=== PATIENT | male | born 1945 | race African-American/Black ===

== ENCOUNTER 2017-06-09 15:18 | Emergency (ER) | payer MEDICARE ==
[~2017-06-09] VITALS: Ht 172.7 cm; Wt 120.2 kg
[2017-06-09] MEDS ORDERED: calcium citrate (15:29)
[2017-06-09] MEDS ORDERED: GABAPENTIN100 MG ORAL (15:29)
[2017-06-09] MEDS ORDERED: FLUTICASONE PRO16 G1 NASAL (15:29)
[2017-06-09] MEDS ORDERED: PAMELOR10 MG ORAL (15:29)
[2017-06-09] MEDS ORDERED: VITAMIN C500 M1 ORAL (15:29)
[2017-06-09] MEDS ORDERED: ISOSORBIDE DINIT5 MG ORAL (15:29)
[2017-06-09] MEDS ORDERED: VITAMIN D400 INTLU ORAL (15:29)
[2017-06-09] MEDS ORDERED: SIMVASTATIN20 MG ORAL (15:29)
[2017-06-09] MEDS ORDERED: TRAMADOL HCL50 MG ORAL ×2 (15:29→19:27)
[2017-06-09] MEDS ORDERED: VENTOLIN HFA18 GM INH (15:29)
[2017-06-09] MEDS ORDERED: PLAVIX75 MG ORAL (15:29)
[2017-06-09] MEDS ORDERED: traMADol 50mg tab ORAL ONE (15:45)
[2017-06-09 17:05] LABS: BASOPHILS % (AUTO) 1.1 % (0.0-2.0); EOSINOPHILS % (AUTO) 2.7 % (0.0-3.0); LYMPHOCYTES % (AUTO) 20.8 % (20.0-45.0); MEAN CORPUSCULAR HEMOGLOBIN 31.8 PG (27.0-31.0); MEAN CORPUSCULAR HGB CONC 34.4 G/DL (32.0-36.0); MEAN CORPUSCULAR VOLUME 93 FL (80-99); MEAN PLATELET VOLUME 8.2 FL (6.5-10.1); MONOCYTES % (AUTO) 5.7 % (1.0-10.0); NEUTROPHILS % (AUTO) 69.7 % (45.0-75.0); PLATELET COUNT 180 K/UL (150-450); RED BLOOD COUNT 4.39 M/UL (4.70-6.10); RED CELL DISTRIBUTION WIDTH 12.3 % (11.6-14.8)
[2017-06-09 17:23] LABS: ALANINE AMINOTRANSFERASE 6 U/L (3-41); ALBUMIN/GLOBULIN RATIO 1.5 (1.0-2.7); ANION GAP 9 (5-15); ASPARTATE AMINO TRANSFERASE 16 U/L (5-40); CALCIUM 9.7 mg/dL (8.6-10.2); CARBON DIOXIDE 30 mEQ/L (20-30); CHLORIDE 110 mEQ/L (98-107); CREATININE 1.1 mg/dL (0.7-1.2); HEMOLYSIS 11; POTASSIUM 4.4 mEQ/L (3.4-4.9); SODIUM 149 mEQ/L (135-145)
[2017-06-09 17:24] LABS: TROPONIN I < 0.30 ng/mL (<=0.30)
[2017-06-09 17:33] LABS: CKMB 1.7 ng/mL (< 6.7)
[2017-06-09 18:47] VITALS: BP 111/78
[2017-06-09 19:47] VITALS: BP 111/78
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
--- NOTE | 2017-06-12 16:48 | Cardiology Report ---
APPROVED REPORT EKG Measurement Heart [id number] Normal sinus rhythm Normal ECG
== END 2017-06-09 19:47 | disposition home or self-care (01) ==
LOC: EDBD 15:18 → EMR 15:55
DX: S00.81XA Abrasion of other part of head, initial encounter (principal); S05.12XA Contusion of eyeball and orbital tissues, left eye, initial encounter; V43.52XA Car driver injured in collision with other type car in traffic accident, initial encounter; Y92.410 Unspecified street and highway as the place of occurrence of the external cause; K11.5 Sialolithiasis; J32.9 Chronic sinusitis, unspecified; I10 Essential (primary) hypertension; J45.909 Unspecified asthma, uncomplicated
CPT/HCPCS: 36415; 70486; 71010; 71250; 72125; 80053; 82550; 82553; 84484; 85025; 93005; 99283